=== PATIENT | female | born 1990 | race African-American/Black ===

== ENCOUNTER 2016-09-21 10:09 | Emergency (ER) | payer OTHER ==
[~2016-09-21] VITALS: Ht 160 cm; Wt 63.0 kg
[2016-09-21 10:13] VITALS: BP 149/95; PULSE 84; RESP 14; TEMP 98.2; O2SAT 98
[2016-09-21] MEDS ORDERED: PERI0.126 SWISH-SPIT (10:29)
[2016-09-21] MEDS ORDERED: IBUP800T23 PO (10:29)
[2016-09-21] MEDS ORDERED: AMOX500T PO (10:29)
[2016-09-21] MEDS ORDERED: MAGICADU2 SWISH-SPIT ×2 (10:29→10:32)
--- NOTE | 2016-09-21 10:30 | PD ---
HPI Chief Complaint: Oral / Dental Pain or Problem Time Seen by Provider: 10:27 Travel History International Travel<30 days: No Contact w/Intl Traveler<30days: No Traveled to known affect area: No History of Present Illness HPI 25-year-old female presents to the emergency department with 2 complaints. Her first complaint is right lower tooth pain that she woke up this morning. She says she has an impacted tooth and her gums are swollen and painful. She denies fever, chills, nausea, vomiting. Denies facial edema or erythema. Pain is aggravated with eating, drinking, palpation. Took Tylenol with no relief. No known relieving factors. Her second complaint is vaginal discharge for the last couple days. Reports foul order. Reports change in color to her vaginal discharge. Denies vaginal pain, odor, itch, lesions. Denies dysuria. Reports unprotected sexual intercourse. Unknown exposure to STDs. Last menstrual period August. Denies contraception. Denies abdominal pain, pelvic pain. No known allergies. No other modifying factors or associated signs and symptoms. PFSH Past Medical History ?: Not Social History Alcohol Use: No Tobacco Use: No Allergies-Medications (Allergen,Severity, Reaction): Coded Allergies: No Known Allergies (Unverified , 09/21/16) Reported Meds & Prescriptions Reported Meds & Active Scripts Active Magic Mouthwash Adult Liq (Multi-Ingredient Mouthwash/Gargle) 120 Ml Susp 5 Ml SWISH-SPIT Q3HR PRN Each 5 mL contains: Nystatin 200,000 units, Diphenhydramine 4.25 mg, Viscous Lidocaine 10 mg, Olmos syrup 0.8 mL Amoxicillin 500 Mg Tab 500 Mg PO BID 10 Days Ibuprofen 800 Mg Tab 800 Mg PO Q6HR PRN Peridex Liq (Chlorhexidine Gluconate (Mouth) Liq) 0.12% Soln 15 Ml SWISH-SPIT BID 10 Days Review of Systems Except as stated in HPI: all other systems reviewed are Neg Physical Exam Narrative GENERAL: Well-nourished, well-developed female patient, in no acute distress; afebrile, nontoxic-appearing SKIN: Warm and dry. HEAD: Atraumatic. Normocephalic. No facial edema, erythema, tenderness on palpation. No lymphadenopathy. EYES: Pupils equal and round. No scleral icterus. No injection or drainage. ENT: Mucosa pink and moist. Airway patent. MOUTH: Mucous membranes moist, no lesions, tongue and gums appear normal. Right lower tooth number tooth #30 with partial tooth noted in the gum; gingiva is mildly edematous and without erythema, obvious abscess. Area is tender to palpation. NECK: Trachea midline. No lymphadenopathy. CARDIOVASCULAR: Regular rate. RESPIRATORY: No accessory muscle use. GASTROINTESTINAL: Flat. MUSCULOSKELETAL: No obvious deformities. No clubbing. No cyanosis. No edema. NEUROLOGICAL: Awake and alert. Oriented 3. No obvious cranial nerve deficits. Motor grossly within normal limits. Normal speech. PSYCHIATRIC: Appropriate mood and affect; insight and judgment normal. Data Data Last Documented VS Vital Signs Date Time Temp Pulse Resp B/P Pulse Ox O2 Delivery O2 Flow Rate FiO2 09/21/16 10:13 98.2 84 14 149/95 98 MDM Medical Decision Making Medical Screen Exam Complete: Yes Emergency Medical Condition: Yes Medical Record Reviewed: Yes Differential Diagnosis Gingivitis, dental abscess, sexual transmitted infection Narrative Course 25-year-old female with 2 complaints. Her main complaint is right lower dental pain. There is a partial tooth noted to the area and the area is tender to palpation. No obvious abscess noted. No facial erythema, edema. Patient is afebrile and nontoxic-appearing. Her second complaint is vaginal discharge. I offered to do a pelvic exam and the patient declined at this time. She said she will return at another time to address her concern of vaginal discharge. Instructed patient she can return to the emergency department or follow-up with the health Department also. Patient verbalizes understanding and agreement with treatment plan. Instructed patient to follow up with dentist. Emergency dental information sheet provided. Amoxicillin, Magic mouthwash, Peridex mouth rinse, ibuprofen prescribed for home. Patient is medically cleared and stable for discharge. Discussed reasons to return to the emergency department. Instructed patient to follow up with primary care provider. Patient agrees with treatment plan. The patients vital signs are stable and the patient is stable for outpatient follow-up and treatment. Patient discharged home, stable and in no acute distress. Diagnosis Primary Impression: Dentalgia Referrals: Dentist Primary Care Physician Patient Instructions: Dental Abscess (ED), Dental Caries (DC), General Instructions, Gingivitis (ED), Toothache (ED) Departure Forms: Tests/Procedures, Work Release Enter return to work date: Sep 22, 2016 Additional Instructions: Complete full course of antibiotics Ibuprofen as directed and as needed to reduce pain and inflammation Use Magic mouthwash rinse as directed and as needed to decrease pain Use Peridex as directed for oral hygiene Warm compresses to the affected area Follow-up with dentist Follow-up with primary care provider Return to emergency department immediately with worsening of symptoms Med/Other Pt SpecificInfo: Prescription(s) given Scripts Ckomaqvv-Xgjflukzcinymre-Rzqbewtgr Liq (Magic Mouthwash Adult Liq)120 Ml Susp5 Ml SWISH-SPIT Q3HR PRN (PAIN SCALE 1 TO 10) #120 ML Ref 0 Each 5 mL contains: Nystatin 200,000 units, Diphenhydramine 4.25 mg, Viscous Lidocaine 10 mg, Olmos syrup 0.8 mL Prov:Tamiko Angulo 09/21/16 Amoxicillin 500 Mg [id number] Mg PO BID 10 Days Ref 0 Prov:Tamiko Angulo 09/21/16 Ibuprofen 800 Mg [id number] Mg PO Q6HR PRN (PAIN) #30 TAB Ref 0 Prov:Tamiko Angulo 09/21/16 Chlorhexidine Gluconate (Mouth) Liq (Peridex Liq)0.12% Soln15 Ml SWISH-SPIT BID 10 Days Ref 0 Prov:Tamiko Angulo 09/21/16 Disposition: 01 DISCHARGE HOME Condition: Stable Tamiko Angulo Sep 21, 2016 10:30
== END 2016-09-21 11:02 | disposition home or self-care (01) ==
LOC: NEPB 10:09
DX: K08.89 Other specified disorders of teeth and supporting structures (principal); N89.8 Other specified noninflammatory disorders of vagina
CPT/HCPCS: 99282

== ENCOUNTER 2017-02-06 08:36 | Emergency (ER) | payer OTHER ==
[~2017-02-06] VITALS: Ht 160 cm; Wt 60.0 kg
[~2017-02-06 08:36] MED LIST: AMOX500T PO; IBUP800T23 PO; MAGICADU2 SWISH-SPIT; PERI0.126 SWISH-SPIT
[2017-02-06 08:37] VITALS: BP 128/79; PULSE 76; RESP 20; TEMP 98; O2SAT 100
[2017-02-06 10:00] LABS: BLOOD, URINE SMALL (NEG); COMMENT (UR) CULT NOT INDICATED; CULTURE IF INDICATED CULT NOT INDICATED; GLUCOSE,URINE NEG (NEG); KETONE, URINE NEG (NEG); MUCUS URINE FEW /lpf (OCC); NITRITE,URINE NEG (NEG); PH, URINE 5.5 (5.0-8.5); SQUAMOUS EPITHELIAL CELL URINE 1 /hpf (0-5); URINE COLOR YELLOW (YELLW/STRAW)
[2017-02-06] MEDS ORDERED: AZITHROMYCIN PWD FOR SUSP 1 GM PACKET PO ONE (10:30)
[2017-02-06] MEDS ORDERED: LIDOCAINE HCL 1% 50 ML VIAL IM ONE (10:30)
[2017-02-06] MEDS ORDERED: cefTRIAXone 250 MG VIAL IM ONE (10:30)
--- NOTE | 2017-02-06 10:45 | PD ---
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 She says it is yellow in color. She denies any dysuria, abdominal pain, nausea or vomiting. She is unsure if she was exposed to gonorrhea or chlamydia. She denies fever or chills. [facility] Past Medical History Medical History: Denies Significant Hx Influenza Vaccination: No ?: Unknown LMP: 01/18/17 : 3 Para: 3 Past Surgical History Surgical History: No Previous Surgery Social History Alcohol Use: Yes (SOCIALLY) Tobacco Use: No Substance Use: Yes (MARIJUANA OCCASIONALLY) Allergies-Medications (Allergen,Severity, Reaction): Coded Allergies: No Known Allergies (Unverified , 02/06/17) Reported Meds & Prescriptions Reported Meds & Active Scripts Active Review of Systems Except as stated in HPI: all other systems reviewed are Neg General / Constitutional: No: Fever, Chills HENT: No: Headaches, Lightheadedness Cardiovascular: No: Chest Pain or Discomfort Respiratory: No: Shortness of Breath Gastrointestinal: No: Nausea, Vomiting, Abdominal Pain Genitourinary: Positive: Discharge, No: Dysuria Skin: No Rash, No Change in Pigmentation Neurologic: No: Weakness, Dizziness Physical Exam Narrative GENERAL: Awake and alert, in no acute distress. SKIN: Focused skin assessment warm/dry. HEAD: Atraumatic. Normocephalic. EYES: Pupils equal and round. No scleral icterus. ENT: Mucous membranes pink and moist. CARDIOVASCULAR: Regular rate and rhythm. No murmur appreciated. RESPIRATORY: No accessory muscle use. Clear to auscultation. Breath sounds equal bilaterally. GASTROINTESTINAL: Abdomen soft, non-tender, nondistended. : Scant white discharge. No CMT. No cervical lesions. Performed in the presence of a female nurse. NEUROLOGICAL: Awake and alert. No obvious cranial nerve deficits. Motor grossly within normal limits. Normal speech. PSYCHIATRIC: Appropriate mood and affect; insight and judgment normal. Data Data Last Documented VS Vital Signs Date Time Temp Pulse Resp B/P Pulse Ox O2 Delivery O2 Flow Rate FiO2 02/06/17 08:37 98.0 76 20 128/79 100 Room Air Orders Urinalysis - C+S If Indicated (02/06/17 09:20) Ed Urine Pregnancytest Poc (02/06/17 09:20) Wet Prep Profile (02/06/17 09:20) Gc And Chlamydia Pcr (02/06/17 09:20) Azithromycin Powd Pack (Zithromax Powd P (02/06/17 10:30) Ceftriaxone Inj (Rocephin Inj) (02/06/17 10:30) Lidocaine 1% Inj (50 Ml) (Xylocaine 1% I (02/06/17 10:30) Labs Laboratory Tests Test 02/06/17 09:00 Urine Color YELLOW Urine Turbidity CLEAR Urine pH 5.5 Urine Specific [place] 1.021 Urine Protein NEG mg/dL Urine Glucose (UA) NEG mg/dL Urine Ketones NEG mg/dL Urine Occult Blood SMALL Urine Nitrite NEG Urine Bilirubin NEG Urine Urobilinogen LESS THAN 2.0 MG/DL Urine Leukocyte Esterase NEG Urine RBC 1 /hpf Urine WBC LESS THAN 1 /hpf Urine Squamous Epithelial 1 /hpf Cells Urine Mucus FEW /lpf Microscopic Urinalysis Comment CULT NOT INDICATED Clue Cells (Wet Prep) NONE SEEN Vaginal Trichomonas (Wet Prep) NONE SEEN Vaginal Yeast (Wet Prep) NONE SEEN MDM Medical Decision Making Medical Screen Exam Complete: Yes Emergency Medical Condition: Yes Medical Record Reviewed: Yes Differential Diagnosis UTI versus gonorrhea/chlamydia versus vaginosis versus yeast infection Narrative Course Patient is a 26-year-old female comes in complaining of vaginal discharge. Exam shows scant amount of white discharge. Wet prep shows no abnormalities. Swab sent for GC and Chlamydia. Patient is requesting to be treated for gonorrhea and chlamydia. She was given Rocephin and azithromycin. She is advised to avoid intercourse for the next 2 weeks. Advised to have her partner tested and treated. Advised to return to the ED as needed for any worsening symptoms. Diagnosis Primary Impression: Vaginal discharge Patient Instructions: General Instructions, Vaginal Discharge (ED) Additional Instructions: Avoid sexual intercourse for the next 2 weeks. Have your partner treated if your test for gonorrhea or chlamydia is positive. Follow-up with gynecology. Return to the ED as needed for any worsening symptoms. Disposition: 01 DISCHARGE HOME Condition: Stable Julee Hernandez MD Feb 06, 2017 10:45
[2017-02-06 11:33] LABS: CHLAMYDIA PCR NOT DETECTED (NOT DETECT); NEISSERIA PCR NOT DETECTED (NOT DETECT)
== END 2017-02-06 11:07 | disposition home or self-care (01) ==
LOC: NEPD 08:36
DX: N89.8 Other specified noninflammatory disorders of vagina (principal)
CPT/HCPCS: 81001; 84703; 87210; 87491; 87591; 96372; 99284; J0696

== ENCOUNTER 2017-02-16 16:17 | Emergency (ER) | payer OTHER ==
[~2017-02-16] VITALS: Ht 157.5 cm; Wt 62.0 kg
[2017-02-16 16:19] VITALS: BP 122/66; PULSE 82; RESP 14; TEMP 98.8; O2SAT 98
[2017-02-16] MEDS ORDERED: ROBA500T PO (16:45)
[2017-02-16] MEDS ORDERED: IBUP800T23 PO (16:45)
--- NOTE | 2017-02-16 16:46 | PD ---
HPI Chief Complaint: Chest Pain Time Seen by Provider: 16:43 Travel History International Travel<30 days: No Contact w/Intl Traveler<30days: No Traveled to known affect area: No History of Present Illness HPI 26-year-old female presents to the emergency Department with complaint of left sided chest pain, just above her left breast, that started this morning after waking up. She denies chest pain at this time. Denies injury. 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 Says pain is worse when she extends her left arm behind her and was other certain movements. Denies recent illness. Denies fever, vomiting. Denies heart palpitations, shortness of breath, hemoptysis. Denies family or personal cardiac history. Denies the pain radiates. Denies pain is worse with activity , unless she makes certain movements. Said she took a Rolaids because she thought it was gas. Pain is only aggravated with certain movements and mainly movement of the left arm. No known allergies. Has no other medical complaints. No other modifying factors or associated signs and symptoms. PFSH Past Medical History ?: Not LMP: DEPO, 01/18/17 : 3 Para: 3 Social History Alcohol Use: Yes (SOCIALLY) Tobacco Use: No Substance Use: Yes (MARIJUANA OCCASIONALLY) Allergies-Medications (Allergen,Severity, Reaction): Coded Allergies: No Known Allergies (Unverified , 02/16/17) Reported Meds & Prescriptions Reported Meds & Active Scripts Active Ibuprofen 800 Mg Tab 800 Mg PO Q6HR PRN Robaxin (Methocarbamol) 500 Mg Tab 500 Mg PO QID PRN Review of Systems Except as stated in HPI: all other systems reviewed are Neg Physical Exam Narrative GENERAL: Well-nourished, well-developed female patient, in no acute distress; afebrile, nontoxic-appearing; sitting in the bed eating Breaux 's SKIN: Warm and dry. HEAD: Atraumatic. Normocephalic. EYES: Pupils equal and round. No scleral icterus. No injection or drainage. ENT: Mucosa pink and moist. NECK: Trachea midline. CHEST: No reproducible chest wall tenderness on palpation; no crepitance or deformity. Tenderness elicited just above the left breast when the patient extends her arm back behind her body. No retractions or use of accessory muscles. CARDIOVASCULAR: Regular rate and rhythm. No murmur appreciated. RESPIRATORY: No accessory muscle use. Clear to auscultation. Breath sounds equal bilaterally. No retractions or tachypnea. GASTROINTESTINAL: Abdomen soft, non-tender, nondistended. Hepatic and splenic margins not palpable. Bowel sounds are active 4 quadrants. MUSCULOSKELETAL: No obvious deformities. No clubbing. No cyanosis. No edema. NEUROLOGICAL: Awake and alert. Oriented 3. No obvious cranial nerve deficits. Motor grossly within normal limits. Normal speech. Moves all extremities. 5/5 strength to all extremities. PSYCHIATRIC: Appropriate mood and affect; insight and judgment normal. Data Data Last Documented VS Vital Signs Date Time Temp Pulse Resp B/P Pulse Ox O2 Delivery O2 Flow Rate FiO2 02/16/17 16:40 Room Air 02/16/17 16:19 98.8 82 14 122/66 98 MDM Medical Decision Making Medical Screen Exam Complete: Yes Emergency Medical Condition: Yes Medical Record Reviewed: Yes Differential Diagnosis Musculoskeletal pain, muscle strain, muscle spasm Narrative Course 26-year-old female physical exam consistent with musculoskeletal chest pain. I discussed the patient with Dr. Hartmann, my attending physician, and she recommends the patient can be discharged home with muscle relaxers and NSAIDs. Robaxin and ibuprofen prescribed for home. Patient verbalizes understanding and agreement with treatment plan. Patient is medically cleared and stable for discharge. Discussed reasons to return to the emergency department. Instructed patient to follow up with primary care provider. Patient agrees with treatment plan. The patients vital signs are stable and the patient is stable for outpatient follow-up and treatment. Patient discharged home, stable and in no acute distress. Diagnosis Primary Impression: Musculoskeletal chest pain Referrals: Primary Care Physician Patient Instructions: General Instructions, Musculoskeletal Pain (ED) Departure Forms: Tests/Procedures, Work Release Enter return to work date: Feb 17, 2017 Additional Instructions: Ibuprofen or Tylenol as directed and as needed to reduce pain Robaxin as prescribed and as needed to reduce muscle spasms Heating pad and/or ice to affected area to reduce pain Avoid aggravating activities; increase activity as tolerated Gentle stretching to the affected muscle may be helpful Follow-up with a primary care provider Return to the emergency department immediately with worsening of symptoms Med/Other Pt SpecificInfo: Prescription(s) given Scripts Ibuprofen 800 Mg [id number] Mg PO Q6HR PRN (PAIN) #30 TAB Ref 0 Prov:Rassi,Tamiko K LOAD MANAGER 02/16/17 Methocarbamol (Robaxin)500 Mg [id number] Mg PO QID PRN (MUSCLE SPASM) #30 TAB Ref 0 Prov:Tamiko Angulo 02/16/17 Disposition: 01 DISCHARGE HOME Condition: Stable Tamiko Angulo Feb 16, 2017 16:45
== END 2017-02-16 17:15 | disposition home or self-care (01) ==
LOC: NEPD 16:17
DX: R07.89 Other chest pain (principal)
CPT/HCPCS: 99283

== ENCOUNTER 2017-07-02 08:13 | Emergency (ER) | payer OTHER ==
[~2017-07-02] VITALS: Ht 157.5 cm; Wt 62.0 kg
[~2017-07-02 08:13] MED LIST changes: -AMOX500T PO; +IBUP1TAB7 PO; -IBUP800T23 PO; -MAGICADU2 SWISH-SPIT; -PERI0.126 SWISH-SPIT; +ROBA500T PO
[2017-07-02 08:29] VITALS: BP 132/68; PULSE 80; RESP 16; TEMP 98.8; O2SAT 100
--- NOTE | 2017-07-02 11:32 | PD ---
HPI . Dentalgia Chief Complaint: Oral / Dental Pain or Problem Time Seen by Provider: 09:08 Travel History International Travel<30 days: No Contact w/Intl Traveler<30days: No Traveled to known affect area: No History of Present Illness HPI 26-year-old female presents emergency department for evaluation of dentalgia 4 days originating from tooth #30. Patient denies any fevers, chills, malaise, chest pain, shortness breath, abdominal pain, nausea, vomiting, diarrhea. She denies any major medical history and does not take any daily medication. History Past Medical Histgory Medical History: Denies Significant Hx LMP: JANUARY 2017 Past Surgical History Surgical History: No Previous Surgery Social History Alcohol Use: Yes (SOCIALLY) Tobacco Use: No Allergies-Medications (Allergen,Severity, Reaction): Coded Allergies: No Known Allergies (Unverified Adverse Reaction, Unknown, 07/02/17) Reported Meds & Prescriptions Reported Meds & Active Scripts Active Ibuprofen 800 Mg Tab 800 Mg PO Q6HR PRN Robaxin (Methocarbamol) 500 Mg Tab 500 Mg PO QID PRN Review of Systems Except as stated in HPI: all other systems reviewed are Neg Physical Exam Narrative GENERAL: Well-nourished, well-developed 26-year-old female patient in no acute distress. Nontoxic appearing. SKIN: Focused skin assessment warm/dry. HEAD: Normocephalic. Atraumatic. EYES: No scleral icterus. No injection or drainage. MOUTH: Mucous membranes moist, no lesions, tongue and gums appear normal. NECK: Supple, trachea midline. No JVD or lymphadenopathy. CARDIOVASCULAR: Regular rate and rhythm without murmurs, gallops, or rubs. RESPIRATORY: Breath sounds equal bilaterally. No accessory muscle use. GASTROINTESTINAL: Abdomen soft, non-tender, nondistended. MUSCULOSKELETAL: No cyanosis, or edema. Data Data Last Documented VS Vital Signs Date Time Temp Pulse Resp B/P (MAP) Pulse Ox O2 Delivery O2 Flow Rate FiO2 07/02/17 08:41 17 07/02/17 08:29 98.8 80 132/68 (89) 100 MDM Medical Screen Exam Complete: Yes Emergency Medical Condition: Yes Differential Diagnosis Differential diagnoses include but not limited to cavity, dentalgia, pulpitis, dental abscess Narrative Course 26-year-old female present emergency department for evaluation of dentalgia originating from tooth #304 days. Patient denies any fevers, chills, malaise, chest pain, short of breath, nausea, vomiting, diarrhea. There is no signs of localized infection surrounding the tooth. There is no gingival erythema or edema. There is no areas of fluctuation. A medical screening exam was performed: At the time of evaluation the presenting medical condition was determined not to be of an emergent nature. The patient was given the option of receiving additional care, but declined. Patient was given options for additional community resources from which to obtain care. The Patient Has Been advised to seek medical attention for their presenting complaint. The patient has been advised to return to the ER at any time if an emergent condition develops. Primary Impression: Encounter for medical screening examination Disposition: 07 EDGO-ED USE ONLY Condition: Stable Julee Julio Jul 02, 2017 11:32
== END 2017-07-02 09:33 | disposition left against medical advice (07) ==
LOC: NEPD 08:13
DX: K08.89 Other specified disorders of teeth and supporting structures (principal)
CPT/HCPCS: 99281

== ENCOUNTER 2017-09-21 10:03 | Emergency (ER) | payer OTHER ==
[2017-09-21 10:25] VITALS: BP 124/77; PULSE 105; RESP 20; TEMP 98.2; O2SAT 98
[2017-09-21] MEDS ORDERED: ZOFR4TAB3 SL (10:26)
[2017-09-21] MEDS ORDERED: OSEL75 PO (10:26)
--- NOTE | 2017-09-21 10:28 | PD ---
HPI Chief Complaint: cold symptoms Time Seen by Provider: 10:18 Travel History International Travel<30 days: No Contact w/Intl Traveler<30days: No History of Present Illness HPI 26-year-old female presents to the emergency department for evaluation of cold symptoms that started yesterday. I was asked to see the patient the pediatric department after she reports flulike symptoms and her 2 children tested positive for influenza. The patient reports cough, congestion that started yesterday. She denies any fevers at this time. She reports no chronic medical problems and takes no prescribed medications. She does state she vomited times one yesterday and has a decreased appetite. Patient denies any chest pain or shortness of breath. No abdominal pain. No nausea, vomiting, diarrhea. Patient does appear well on exam. Mild severely. No exacerbating or alleviating factors. PFSH Past Medical History Diminished Hearing: No Immunizations Current: No : 3 Para: 3 Social History Alcohol Use: Yes (SOCIALLY) Tobacco Use: No Substance Use: Yes (MARIJUANA OCCASIONALLY) Allergies-Medications (Allergen,Severity, Reaction): Coded Allergies: No Known Allergies (Unverified Adverse Reaction, Unknown, 07/02/17) Reported Meds & Prescriptions Reported Meds & Active Scripts Active Zofran Odt (Ondansetron Odt) 4 Mg Tab 4 Mg SL Q6HR PRN Tamiflu (Oseltamivir Phosphate) 75 Mg Cap 75 Mg PO BID 5 Days Review of Systems Except as stated in HPI: all other systems reviewed are Neg Physical Exam Narrative GENERAL: Well-nourished, well-developed female patient, ambulatory. SKIN: Focused skin assessment warm/dry. HEAD: Normocephalic. Atraumatic. EYES: No scleral icterus. No injection or drainage. NECK: Supple, trachea midline. No JVD or lymphadenopathy. CARDIOVASCULAR: Regular rate and rhythm without murmurs, gallops, or rubs. RESPIRATORY: Breath sounds equal bilaterally. No accessory muscle use. Lungs sounds are clear to auscultation. GASTROINTESTINAL: Abdomen soft, non-tender, nondistended. MUSCULOSKELETAL: No cyanosis, or edema. BACK: Nontender without obvious deformity. No CVA tenderness. Data Data Last Documented VS Vital Signs Date Time Temp Pulse Resp B/P (MAP) Pulse Ox O2 Delivery O2 Flow Rate FiO2 09/21/17 10:27 Room Air 09/21/17 10:25 98.2 105 20 124/77 (75) 04 [facility] Medical Decision Making Medical Screen Exam Complete: Yes Emergency Medical Condition: Yes Medical Record Reviewed: Yes Differential Diagnosis Influenza versus URI versus bronchitis Narrative Course 26-year-old female presents to the emergency department with her 2 children reporting cold symptoms that started yesterday. Her 2 children have tested positive for influenza. Based on this, the patient will be discharged prescription for Tamiflu. She will also be discharged prescription for Zofran for nausea/vomiting. She verbalizes agreement and understanding. Diagnosis Primary Impression: Flu-like symptoms Referrals: Primary Care Physician call for appointment Patient Instructions: Influenza (ED) Departure Forms: Work Release Enter return to work date: Sep 24, 2017 Additional Instructions: Eugy-ems-woqmiuk ibuprofen/Tylenol as needed for pain/fever. Drink plenty of fluids. Take Zofran as instructed as needed for nausea/vomiting. Take Tamiflu as directed. Follow-up with your primary care physician. Return to the emergency department for any acute worsening of symptoms. Med/Other Pt SpecificInfo: Prescription(s) given Scripts Ondansetron Odt (Zofran Odt) 4 Mg Tab 4 MG SL Q6HR Y for Nausea/Vomiting, #12 TAB 0 Refills Prov: Margarette Aguilera 09/21/17 Oseltamivir (Tamiflu) 75 Mg Cap 75 MG PO BID for Mgmt Viral Infection for 5 Days, #10 CAP 0 Refills Prov: Margarette Aguilera 09/21/17 Disposition: 01 DISCHARGE HOME Condition: Stable Margarette Aguilera Sep 21, 2017 10:28
== END 2017-09-21 10:46 | disposition home or self-care (01) ==
LOC: NEPA 10:03
DX: J11.1 Influenza due to unidentified influenza virus with other respiratory manifestations (principal); F12.90 Cannabis use, unspecified, uncomplicated
CPT/HCPCS: 99284

== ENCOUNTER 2017-11-07 11:33 | Emergency (ER) | payer OTHER ==
[~2017-11-07] VITALS: Ht 160 cm; Wt 60.0 kg
[~2017-11-07 11:33] MED LIST changes: -IBUP1TAB7 PO; +OSEL75 PO; -ROBA500T PO; +ZOFR4TAB3 SL
[2017-11-07 11:39] VITALS: BP 120/80; PULSE 83; RESP 17; TEMP 98.3; O2SAT 100
[2017-11-07] MEDS ORDERED: TRAM50 PO (12:49)
[2017-11-07] MEDS ORDERED: PENI500T PO (12:49)
--- NOTE | 2017-11-07 12:49 | PD ---
HPI Chief Complaint: Oral / Dental Pain or Problem Time Seen by Provider: 12:34 Travel History International Travel<30 days: No Contact w/Intl Traveler<30days: No Traveled to known affect area: No History of Present Illness HPI 27-year-old female complains of dental pain. Patient states that she has severe sharp pain started on the right side of the gum with radiation to right ear in the right side of head. Patient states that the pain started several days ago. Patient states that she had dental problem for a long time. Patient has an appointment with dentist. Patient denies any fever chills. PFSH Past Medical History Diminished Hearing: No Immunizations Current: No : 3 Para: 3 Social History Alcohol Use: Yes (SOCIALLY) Tobacco Use: No Substance Use: Yes (MARIJUANA OCCASIONALLY) Allergies-Medications (Allergen,Severity, Reaction): Coded Allergies: No Known Allergies (Unverified Adverse Reaction, Unknown, 11/07/17) Reported Meds & Prescriptions Reported Meds & Active Scripts Active Zofran Odt (Ondansetron Odt) 4 Mg Tab 4 Mg SL Q6HR PRN Tamiflu (Oseltamivir Phosphate) 75 Mg Cap 75 Mg PO BID 5 Days Review of Systems General / Constitutional: No: Fever Eyes: No: Visual changes HENT: No: Headaches Cardiovascular: No: Chest Pain or Discomfort Respiratory: No: Shortness of Breath Gastrointestinal: No: Abdominal Pain Genitourinary: No: Dysuria Musculoskeletal: No: Pain Skin: No Rash Neurologic: No: Weakness Psychiatric: No: Depression Endocrine: No: Polydipsia Hematologic/Lymphatic: No: Easy Bruising Physical Exam Narrative GENERAL: Well-nourished, well-developed patient. SKIN: Focused skin assessment warm/dry. HEAD: Normocephalic. EYES: No scleral icterus. No injection or drainage. NECK: Supple, trachea midline. No JVD or lymphadenopathy. CARDIOVASCULAR: Regular rate and rhythm without murmurs, gallops, or rubs. RESPIRATORY: Breath sounds equal bilaterally. No accessory muscle use. GASTROINTESTINAL: Abdomen soft, non-tender, nondistended. MUSCULOSKELETAL: No cyanosis, or edema. BACK: Nontender without obvious deformity. No CVA tenderness. Patient has severe dental caries right lower gum area. No soft tissue swelling noted. Data Data Last Documented VS Vital Signs Date Time Temp Pulse Resp B/P (MAP) Pulse Ox O2 Delivery O2 Flow Rate FiO2 11/07/17 11:39 98.3 83 17 120/80 (93) 100 MDM Medical Decision Making Medical Screen Exam Complete: Yes Emergency Medical Condition: Yes Differential Diagnosis Differential diagnosis includes dental pain, dental abscess. Narrative Course 27-year-old female with dental pain. Patient states that she is allergic to ibuprofen. Diagnosis Primary Impression: Pain, dental Patient Instructions: General Instructions Med/Other Pt SpecificInfo: Prescription(s) given Scripts Penicillin V Potassium (Penicillin V Potassium) 500 Mg Tab 500 MG PO Q6H for Infection, #40 TAB 0 Refills Prov: Walter Reyes MD 11/07/17 Tramadol (Ultram) 50 Mg Tab 50 MG PO Q6H Y for PAIN, #10 TAB 0 Refills Prov: Walter Reyes MD 11/07/17 Disposition: 01 DISCHARGE HOME Condition: Stable Walter Reyes MD Nov 07, 2017 12:49
== END 2017-11-07 13:22 | disposition home or self-care (01) ==
LOC: NEPD 11:33
DX: K08.89 Other specified disorders of teeth and supporting structures (principal); Z88.6 Allergy status to analgesic agent
CPT/HCPCS: 99283

== ENCOUNTER 2018-01-23 10:52 | Emergency (ER) | payer OTHER ==
[~2018-01-23] VITALS: Ht 160 cm; Wt 61.0 kg
[~2018-01-23 10:52] MED LIST changes: +PENI500T PO; +TRAM50 PO
[2018-01-23 10:55] VITALS: BP 122/80; PULSE 83; RESP 16; TEMP 98.6; O2SAT 99
[2018-01-23 12:10] VITALS: BP 123/70; PULSE 65; RESP 17; O2SAT 100
[2018-01-23] MEDS ORDERED: ACETAMINOPHEN 500 MG CPLT PO ONE (12:15)
--- NOTE | 2018-01-23 12:34 | PD ---
HPI Chief Complaint: Injury Time Seen by Provider: 12:03 Travel History International Travel<30 days: No Contact w/Intl Traveler<30days: No Traveled to known affect area: No History of Present Illness HPI 27-year-old [id number] female presents the ED for evaluation of left wrist pain. Rated 6/10, throbbing, worsened by touch and certain motions. Onset just before arrival after the patient states that a door at work closed on her arm. She denies previous injury to the area. She denies numbness, tingling, weakness, limitations range of motion of the extremity. No treatment attempted before arrival. She denies risk of . PFSH Past Medical History Asthma: Yes Diminished Hearing: No Immunizations Current: No Tetanus Vaccination: < 5 Years Influenza Vaccination: Yes ?: Not LMP: Beginning of december : 3 Para: 3 Past Surgical History Surgical History: No Previous Surgery Social History Alcohol Use: No Tobacco Use: No Substance Use: No Allergies-Medications (Allergen,Severity, Reaction): Coded Allergies: No Known Allergies (Unverified , 01/23/18) Reported Meds & Prescriptions Reported Meds & Active Scripts Active Ibuprofen 600 Mg Tab 600 Mg PO Q8H PRN Review of Systems Except as stated in HPI: all other systems reviewed are Neg Physical Exam Narrative GENERAL: Well-nourished, well-developed -[place] female no acute distress. SKIN: Focused skin assessment warm/dry. HEAD: Normocephalic. EYES: No scleral icterus. No injection or drainage. NECK: Supple, trachea midline. No JVD or lymphadenopathy. CARDIOVASCULAR: Regular rate and rhythm without murmurs, gallops, or rubs. RESPIRATORY: Breath sounds equal bilaterally. No accessory muscle use. GASTROINTESTINAL: Abdomen soft, non-tender, nondistended. MUSCULOSKELETAL: No cyanosis, or edema. FOCUSED LEFT UPPER EXTREMITY EXAM: 2+ radial pulse. Tender to palpation of the distal radius and ulna. No snuffbox tenderness. No limitations to flexion, extension, supination or pronation of the wrist. Patient is able to flex and extend the digits of the hand. Strong finger to thumb opposition on each digit. Neurovascularly intact and cap refill less than 2 seconds on each digit. BACK: Nontender without obvious deformity. No CVA tenderness. Data Data Last Documented VS Vital Signs Date Time Temp Pulse Resp B/P (MAP) Pulse Ox O2 Delivery O2 Flow Rate FiO2 01/23/18 12:10 65 17 123/70 (87) 100 Room Air 01/23/18 10:55 98.6 Orders Orders Wrist, Complete ([id number]) (01/23/18 12:06) Ice/Cold Pack (01/23/18 12:06) Acetaminophen (Tylenol) (01/23/18 12:15) Ed Discharge Order (01/23/18 12:54) [facility] Medical Decision Making Medical Screen Exam Complete: Yes Emergency Medical Condition: Yes Differential Diagnosis Contusion versus musculoskeletal pain versus less likely fracture versus other Narrative Course 27-year-old [id number] female presents the ED for evaluation of left wrist pain. Rated 6/10, throbbing, worsened by touch and certain motions. Onset just before arrival after the patient states that a door at work closed on her arm. She denies previous injury to the area. She denies numbness, tingling, weakness, limitations range of motion of the extremity. Vitals reviewed. On physical exam the patient has some tenderness to palpation of the distal radius and ulna. No snuffbox tenderness. Exam is otherwise unremarkable. Ice pack was applied. Patient was administered 500 mg Tylenol. X-rays reveal no acute bony injury. This contusion of the left wrist. Patient' s prescribed a short course of anti-inflammatories, instructed to use RICE therapy, follow with the orthopedist if symptoms fail to resolve. She indicated understanding of the instructions. She is stable and discharged home. Diagnosis Primary Impression: Contusion of left wrist, initial encounter Referrals: Orthopedist Departure Forms: Tests/Procedures, Work Release Enter return to work date: Jan 24, 2018 Special Instructions: No lifting over 15 lbs with the left hand for 5 days. Additional Instructions: Rest, ice, elevate the extremity. Apply ice no longer than 10-15 minutes per hour a few times a day. 600 mg ibuprofen up to 3 times a day as needed for pain. Return to normal, gentle activity as tolerated. No heavy lifting or excessive overuse of the arm for the next 5 days. Follow up with orthopedist or your primary care provider. Return to the ED for any urgent or emergent medical condition. Med/Other Pt SpecificInfo: Prescription(s) given Scripts Ibuprofen (Ibuprofen) 600 Mg Tab 600 MG PO Q8H Y for PAIN, #15 TAB 0 Refills Prov: Pricila Morejon MD 01/23/18 Disposition: 01 DISCHARGE HOME Condition: Stable Kait Restrepo January 23, 2018 12:34
[2018-01-23] MEDS ORDERED: IBUP-232 PO (12:35)
--- NOTE | 2018-01-23 12:59 | RADRPT ---
EXAM DATE: 01/23/2018 12:43 PM EDT AGE/SEX: 27 years / Female INDICATIONS: Lateral left wrist pain. Patient had her wrist slammed in a door today. CLINICAL DATA: This is the patient's initial encounter. Patient reports that signs and symptoms have been present for 1 day and indicates a pain score of 6/10. MEDICAL/SURGICAL HISTORY: None. None. COMPARISON: No prior [facility] exams available for comparison. FINDINGS: Bony structures are intact and in normal alignment. Joints are intact without dislocation or signifi cant arthropathy. Osseous density is normal. Soft tissues are unremarkable. No radiopaque foreign bodies seen. CONCLUSION: 1. No acute fracture or dislocation. Electronically signed by: Jayy Truong MD 01/23/2018 12:57 PM EDT
[2018-01-23 13:23] VITALS: BP 123/78
== END 2018-01-23 13:30 | disposition home or self-care (01) ==
LOC: NEPD 10:52
DX: S60.212A Contusion of left wrist, initial encounter (principal); W22.8XXA Striking against or struck by other objects, initial encounter
CPT/HCPCS: 73110; 99283